=== PATIENT | female | born 1975 | race Two or more races ===

== ENCOUNTER 2021-07-04 23:06 | Emergency (ER) | payer MEDICAID ==
[~2021-07-04] VITALS: Ht 157.5 cm; Wt 86.2 kg
--- NOTE | 2021-07-04 23:25 | NUR ---
ADELAIDA C/O FLU LIKE SYMPTOMS STARTED THRUSDAY TAKES TYLENOL DAY AND NIGHT. PLACED COMFORTABLY IN BED. VITALS CHECKED.
--- NOTE | 2021-07-04 23:28 | NUR ---
SEEN BY DR SANDERS AT BEDSIDE
--- NOTE | 2021-07-04 23:46 | NUR ---
COVID ANTIGEN SWAB COLLECTED AND SENT TO LAB
[2021-07-05] MEDS ORDERED: IBUP-1957 PO (00:32)
[2021-07-05] MEDS ORDERED: GUAI1TBM19 PO (00:32)
[2021-07-05] MEDS ORDERED: BENZ-13 PO (00:32)
--- NOTE | 2021-07-05 00:40 | NUR ---
Patient discharged to home in stable condition. Written and verbal after care instructions given. Patient verbalizes understanding of instruction. PT ambulatory with a steady gait
[2021-07-05 00:41] VITALS: BP 136/72
== END 2021-07-05 00:43 | disposition home or self-care (01) ==
LOC: ER 23:18
DX: U07.1 COVID-19 (principal); J06.9 Acute upper respiratory infection, unspecified
CPT/HCPCS: 71045; 87426; 99284; C9803

== ENCOUNTER 2024-03-17 19:16 | Emergency (ER) | payer MEDICAID ==
[~2024-03-17] VITALS: Ht 165.1 cm; Wt 88.0 kg
[~2024-03-17 19:16] MED LIST: BENZ-13 PO; GUAI1TBM19 PO; IBUP-1957 PO
[2024-03-17 21:20] VITALS: BP 147/79; TEMP 98.2; O2SAT 100
== END 2024-03-17 22:25 | disposition home or self-care (01) ==
LOC: ER 19:21
DX: S02.5XXA Fracture of tooth (traumatic), initial encounter for closed fracture (principal); M25.561 Pain in right knee; Z79.1 Long term (current) use of non-steroidal anti-inflammatories (NSAID); W01.0XXA Fall on same level from slipping, tripping and stumbling without subsequent striking against object, initial encounter; Y93.89 Activity, other specified; Y92.89 Other specified places as the place of occurrence of the external cause; Y99.8 Other external cause status